=== PATIENT | male | born 1960 | race African-American/Black ===

== ENCOUNTER 2017-08-20 14:10 | Emergency (ER) | payer MEDICARE ==
[~2017-08-20] VITALS: Ht 167.6 cm; Wt 76.0 kg
--- NOTE | 2017-08-20 14:43 | EKG ---
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
[2017-08-20 15:00] LABS: BASO % 1 % (0-3); EOS # 0.1 x10^3/uL (0.0-0.7); EOS % 2 % (0-3); HEMATOCRIT 42.7 % (39.0-53.0); HEMOGLOBIN 14.2 g/dL (13.0-17.5); LYMPH # 2.2 x10^3/uL (1.0-4.8); LYMPH % 35 % (24-48); MEAN CORPUSCULAR HEMOGLOBIN 30 pg (25-35); MEAN CORPUSCULAR HGB CONC 33 g/dL (31-37); MEAN CORPUSCULAR VOLUME 89 fL (79-100); MONO # 0.6 x10^3/uL (0.0-1.1); MONO % 10 % (0-9); NEUT # 3.2 x10^3uL (1.8-7.7); NEUT % 52 % (31-73); PLATELET COUNT 210 x10^3/uL (140-400); RED BLOOD COUNT 4.81 x10^6/uL (4.30-5.70); RED CELL DISTRIBUTION WIDTH 13.6 % (11.5-14.5); WHITE BLOOD COUNT 6.2 x10^3/uL (4.0-11.0)
[2017-08-20 15:10] LABS: CREATINE KINASE 86 U/L (39-308); LIPASE 112 U/L (73-393)
--- NOTE | 2017-08-20 15:15 | RAD ---
Exam performed: One view chest. Indication: Palpitations Date of Service: 08/20/2017 4:40 PM Comparison: None available. Single AP upright portable view chest findings: Cardiomediastinal silhouette is within limits of normal. No acute infiltrates, effusion or pneumothorax is detected. The bony structures are normal. Impression: No acute cardiopulmonary process is detected.
[2017-08-20 15:17] LABS: ALBUMIN 3.5 g/dL (3.4-5.0); CALCIUM 8.6 mg/dL (8.5-10.1); GFR 93.5; POTASSIUM 4.6 mmol/L (3.5-5.1); TOTAL BILIRUBIN 0.2 mg/dL (0.2-1.0)
[2017-08-20] MEDS ORDERED: NITROGLYCERIN SUBLINGUAL 0.4 MG BOTTLE OF 25. SL PRN (15:30)
[2017-08-20] MEDS ORDERED: ASPIRIN 81 MG TAB.CHEW PO ONE (15:30)
--- NOTE | 2017-08-20 15:52 | PHYS DOC ---
General Chief Complaint: Palpitations Stated Complaint: PALPITATIONS Time Seen by MD: 14:52 Source: patient, RN/MD (pt PCP Dr Page) Exam Limitations: no limitations Problems: History of Present Illness Initial Comments Patient is a 56-year-old male who comes in the ED complaining of chest pain. Patient states that he's had chronic chest pain since CABG in 2014. He states that his chest pain symptoms worsened on Saturday (3 days ago). He states that it feels like a pressure or tightness worse with certain movements and relieved with rest. He denies nausea vomiting diaphoresis arm or neck symptoms and shortness of breath. He has history of coronary artery disease diabetes. He called his primary care doctor who sent him to the nearest emergency department. His primary care Dr Page did call to give a report on the patient. He states the patient has history of diabetes with diabetic neuropathy, coronary artery disease, he's had a CABG and lower extremity bypass procedures. He says he was called earlier by the patient who reported chest pain and he did advise them to come to the emergency department. I advised him that the patient had just arrived his EKG was unremarkable for acute coronary syndrome/STEMI and that I would call him once we had results back. He gave me his pager number, [phone]. Timing/Duration: constant (since 2014 but worse for the past 3 days) Severity: moderate Modifying Factors: worse with movement, improves with rest Associated Symptoms: chest pain Allergies: Coded Allergies: No Known Drug Allergies (Unverified , 08/20/17) Past Medical History Medical History: diabetes (age U rapid strep), heart attack, heart disease Surgical History: coronary bypass surgery, other (lower extremity bypass) Social History Smoker: non-smoker Alcohol: none Drugs: none Review of Systems Constitutional: denies chills, denies diaphoresis, denies fever, denies malaise Respiratory: denies cough, denies shortness of breath, denies wheezing Cardiovascular: see HPI, denies edema, denies palpitations, denies syncope Gastrointestinal: denies abdominal pain, denies diarrhea, denies nausea, denies vomiting Musculoskeletal: denies back pain, denies joint pain, muscle pain, muscle stiffness, denies neck pain Psychiatric/Neurological: denies headache, denies numbness, denies paresthesia (nonswollen was negative, so yet, just as directed), denies weakness Hematologic/Lymphatic: denies blood clots, denies easy bleeding, denies easy bruising Physical Exam General Appearance: WD/WN, no apparent distress Eyes: bilateral eye normal inspection, bilateral eye PERRL, bilateral eye EOMI Ear, Nose, Throat: hearing grossly normal, normal ENT inspection Neck: non-tender, supple Respiratory: normal breath sounds, no respiratory distress, other (tenderness is noted in the muscle belly of the left pectoral reproducing chief complaint) Cardiovascular: normal peripheral pulses, regular rate, rhythm Gastrointestinal: non tender, soft Back: no CVA tenderness, no vertebral tenderness Extremities: normal range of motion, no calf tenderness, pelvis stable, other ( 1+ pitting lower extremity edema) 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 Interpreted by Dr. Lozano. PATIENT: NEO MOULTON ACCOUNT: [id number] : 1960 LOCATION: ER AGE: 56 SEX: M EXAM STATUS: REG ER ORD. PHYSICIAN: JAH LOZANO DO REASON: Palpitations PROCEDURE: PORTABLE CHEST 1V Exam performed: One view chest. Indication: Palpitations Date of Service: 08/20/2017 4:40 PM Comparison: None available. Single AP upright portable view chest findings: Cardiomediastinal silhouette is within limits of normal. No acute infiltrates, effusion or pneumothorax is detected. The bony structures are normal. Impression: No acute cardiopulmonary process is detected. DICTATED AND SIGNED BY: LETICIA BEY MD DATE: 08/20/17 1507 CC: GEORGINA PAGE; JAH LOZANO DO ~ Labs and urine unremarkable, BNP mildly elevated likely patient's baseline Symptoms have been persistent since 2014 but worse and unchanged for the past 3 days. Enzymes are negative after greater than 12 hours. After receiving all negative workup for acute coronary syndrome I asked the patient if he had had any other unreported physical activity that he had discussed with me prior. He states that he does walk to try to keep his aerobic capacity and cardiovascular health optimized. I asked him if he had done any upper extremity lifting as it appears his left pectoral muscle is the etiology of his chief complaint. He states that in fact he has not done anything with his upper extremities, he did help someone move furniture a few days ago but all he did was push. Pushing furniture does involve activation of the pectoral muscles and I suspect that is how he strained his left pectoral muscle. No emergent cause for his symptoms in the emergency department I will page his doctor as a courtesy but the patient will be discharged home. 1553: I paged patient's doctor, Dr. Page awaiting reply. 1625: After not receiving a response I re-paged patient's doctor and will hold onto him until 1700. If no reply I will go ahead and discharge the patient home and be glad to talk to Dr. Page if he does actually call later on this evening. 165: Dr Page did call back, he is agreeable with my discharge plan as well as lasix 40mg po prior to discharge. Pt has f/u appt with him Saturday Departure Time of Disposition: 16:40 Disposition: 01 HOME, SELF-CARE Diagnosis: left pectoral strain, elevated BNP likely baseline Condition: STABLE Patient Instructions: Muscle Strain, [id number] Additional Instructions: As it has been greater than 48 hours since the muscle injury, he may use a heating pad 15-20 minutes at a time 4-6 times daily followed by gentle stretching. [id number] Tylenol and ibuprofen as needed for discomfort. Continue current medications. Follow-up with your doctor in 3-5 days for recheck. Return to ED with new or changing symptoms. JAH LOZANO DO Aug 20, 2017 15:52
[2017-08-20 16:08] LABS: BACTERIA,URINE 0 /HPF (0-FEW); BILIRUBIN,URINE NEG (NEG); CLARITY,URINE CLEAR; COLOR,URINE YELLOW; GLUCOSE,URINE 500 mg/dL (NEG); NITRITE,URINE NEG (NEG); RBC,URINE RARE /HPF (0-2); UROBILINOGEN,URINE 0.2 mg/dL (0.2 mg/dL); WBC,URINE 0 /HPF (0-4)
[2017-08-20 17:00] VITALS: BP 119/77
[2017-08-20] MEDS ORDERED: FUROSEMIDE 40 MG TABLET PO ONE (17:30)
== END 2017-08-20 17:00 | disposition home or self-care (01) ==
LOC: ER 14:10
DX: S29.011A Strain of muscle and tendon of front wall of thorax, initial encounter (principal); X58.XXXA Exposure to other specified factors, initial encounter; Y93.89 Activity, other specified; Y92.89 Other specified places as the place of occurrence of the external cause; Y99.8 Other external cause status; E11.40 Type 2 diabetes mellitus with diabetic neuropathy, unspecified; G89.29 Other chronic pain; I25.10 Atherosclerotic heart disease of native coronary artery without angina pectoris; Z95.1 Presence of aortocoronary bypass graft
CPT/HCPCS: 36415; 71010; 80053; 81001; 82550; 83690; 83880; 84484; 85025; 85379; 85610; 85730; 93005; 99285-25